=== PATIENT | female | born 1940 | race Caucasian/White ===

== ENCOUNTER → 2017-04-22 | Outpatient (CLI) | payer MEDICARE ==
[2017-04-22 15:32] LABS: ANION GAP 11 (5-19); BLOOD UREA NITROGEN 13 mg/dL (7-20); CALCIUM 10.2 mg/dL (8.4-10.2); CARBON DIOXIDE 29 mmol/L (22-30); CHLORIDE 98 mmol/L (98-107); GLUCOSE 85 mg/dL (75-110); POTASSIUM 3.6 mmol/L (3.6-5.0); SODIUM 138.1 mmol/L (137-145)
== END ==
LOC: OD 14:13
PROVIDERS: ATTEND Physician Assistant
DX: E87.6 Hypokalemia (principal)
CPT/HCPCS: 36415; 80048

== ENCOUNTER → 2018-03-13 | Outpatient (CLI) | payer MEDICARE ==
--- NOTE | 2018-03-13 10:26 | WOMENS IMAGING REPORT ---
EXAM DESCRIPTION: BONE DENSITY HIP/SPINE COMPLETED DATE/TIME: 03/13/2018 9:34 am REASON FOR STUDY: AGE-RELATED OSTEOPROSIS; M81.0 Z12.31 ENCNTR SCREEN MAMMOGRAM FOR MALIGNANT NEOPL ASM OF VIC M81.0 AGE-RELATED OSTEOPOROSIS W/O CURRENT PATHOLOGICAL FRAC COMPARISON: October 2015 TECHNIQUE: Dual-Energy X-ray Absorptiometry (DEXA) of the AP Spine and Hip. LIMITATIONS: None. FINDINGS: LUMBAR SPINE: The bone mineral density (BMD) measured from L1-L4 in the AP projection correlates with a T-score of 0.0, which is normal as defined by the World Health Organization. 2.7% increase as compared to the p revious study HIP: The bone mineral density (BMD) measured in the left hip correlates with a T-score of -2.0, which is o steoma as defined by the World Health Organization. 3.7% increase as compared to the previous study. IMPRESSION: 1. LUMBAR SPINE: Normal 2. HIP: Osteopenia COMMENT: The World Health Organization defines low BMD as follows: T-score: Normal: Greater than -1.0 Osteopenia: Between -1.0 and -2.5 Osteoporosis: Less than -2.5 without fractures Established osteoporosis: Less than -2.5 with fractures In general, you may wish to consider: Diagnosis Treatment Follow-up DEXA Normal BMD Prevention 2-3 years Osteopenia Prevention/Therapy 1-2 years Osteoporosis Therapy Yearly TECHNICAL DOCUMENTATION: JOB ID: [id number] [employer]- All Rights Reserved Reading location - IP/workstation name: [email or web address]
--- NOTE | 2018-03-13 12:53 | WOMENS IMAGING REPORT ---
EXAM DESCRIPTION: 3D SCREENING MAMMO BILAT COMPLETED DATE/TIME: 03/13/2018 9:34 am REASON FOR STUDY: ROUTINE SCREENING;Z12.31 Z12.31 ENCNTR SCREEN MAMMOGRAM FOR MALIGNANT NEOPLASM OF VIC M81.0 AGE-RELATED OSTEOPOROSIS W/O CURRENT PATHOLOGICAL FRAC COMPARISON: Multiple since 2008 TECHNIQUE: Standard craniocaudal and mediolateral oblique views of each breast recorded using digita l acquisition and breast tomosynthesis. LIMITATIONS: None. FINDINGS: No masses, calcifications or architectural distortion. No areas of suspicion. Read with the assistance of CAD. .[facility] - R2 C[employer]ova Version 1.3 .[facility] - R2 Cenova Version 1.3 .[facility] - R2 Cenova Version 2.4 .[facility] - R2 Cenova Version 2.4 .[facility] - R2 Remote Sensing Technician Version 9.2 IMPRESSION: NORMAL MAMMOGRAM. BIRADS 1. BREAST DENSITY: b. There are scattered areas of fibroglandular density. BIRAD: 1 NEGATIVE RECOMMENDATION: ROUTINE SCREENING Please continue bilateral screening tomosynthesis in March 2019 COMMENT: The patient has been notified of the results by letter per SA requirements. Additional no tification policies are in place for contacting patient with suspicious or incomplete findings. Quality ID #225: The [employer] recommends an annual screening mammogram for women aged 40 years or over. This facility utilizes a reminder system to ensure that all patients receive reminder letters, and/or direct phone calls for appointments. This includes reminders for routine scr eening mammograms, diagnostic mammograms, or other Breast Imaging Interventions when appropriate. Th is patient will be placed in the appropriate reminder system. The [employer] (ACR) has developed recommendations for screening MRI of the breast s in certain patient populations, to be used in conjunction with mammography. Breast MRI surveillanc e may be appropriate for women with more than 20% lifetime risk of developing breast cancer as deter mined by genetic testing, significant family history of the disease, or history of mantle radiation f or Hodgkins Disease. ACR Practice Guidelines 2008. DBT Technology DBT is a type of tomographic mammography. With conventional mammography, overlapping breast tissue ma y make lesions difficult to detect, even with good compression. DBT uses an x-ray tube that rotates a round the breast, taking images at different angles. These images are then combined to create thin sl ices of the breast that the radiologist can view as a 3D reconstruction. The [employer] unit can perform full-field digital mammograms (2D imaging); or DBT (3D imaging); or both, in a combination mode that quickly performs both the mammogram and the tomosynthesis scan while the breast is still compressed. PQRS 6045F: Fluoroscopic imaging is not utilized for breast tomosynthesis. TECHNICAL DOCUMENTATION: FINDING NUMBER: (1) ASSESSMENT: (1) JOB ID: [id number] [employer]- All Rights Reserved Reading location - IP/workstation name: [email or web address]-[email or web address]
== END ==
LOC: WI 09:00
PROVIDERS: ATTEND Physician Assistant
DX: Z12.31 Encounter for screening mammogram for malignant neoplasm of breast (principal); M81.0 Age-related osteoporosis without current pathological fracture
CPT/HCPCS: 77063; 77067; 77080

== ENCOUNTER 2019-01-20 06:55 | Day surgery (SDC) | payer MEDICARE ==
[2019-01-13 09:34] LABS: HEMATOCRIT 37.6 % (36.0-47.0); HEMOGLOBIN 12.7 g/dL (12.0-15.5); MEAN CORPUSCULAR HEMOGLOBIN 28.2 pg (27.0-33.4); MEAN CORPUSCULAR HGB CONC 33.8 g/dL (32.0-36.0); MEAN CORPUSCULAR VOLUME 83 fl (80-97); PLATELET COUNT 169 10^3/uL (150-450); RED BLOOD COUNT 4.51 10^6/uL (3.72-5.28); RED CELL DISTRIBUTION WIDTH 15.1 % (11.5-14.0); WHITE BLOOD COUNT 4.6 10^3/uL (4.0-10.5)
[~2019-01-20 06:55] MED LIST: LACTATED RINGERS 1000 ML IV PRN; LIDOCAINE 0.5% INJ-PF (5 MG/ML) 50 ML SDV SUBCUT PRN; METRONIDAZOLE 500 MG/NS RTU 500 MG/100 ML RTUPB IV PRN
[2019-01-20] MEDS ORDERED: LIDOCAINE 2% JELLY 5 ML TUBE ONE (07:19)
[2019-01-20] MEDS ORDERED: METRONIDAZOLE 500 MG/NS RTU 500 MG/100 ML RTUPB IV ONE (07:19)
[2019-01-20] MEDS ORDERED: LIDOCAINE 1%/EPINEPHRINE INJ 20 ML VIAL ONE (07:19)
[2019-01-20] MEDS ORDERED: FENTANYL CITRATE INJ/PF 100 MCG/2 ML AMPUL ONE (08:35)
[2019-01-20] MEDS ORDERED: MIDAZOLAM 2 MG/2 ML INJ ONE ×2 (08:35→08:37)
[2019-01-20] MEDS ORDERED: ONDANSETRON HCL INJ/PF 4 MG/2 ML SDV ONE (08:35)
[2019-01-20] MEDS ORDERED: PROPOFOL INJ 200 MG/20 ML VIAL IV ONE (08:36)
[2019-01-20] MEDS ORDERED: DIPHENHYDRAMINE HCL 50 MG/ML VIAL IV PRN (08:57)
[2019-01-20] MEDS ORDERED: MORPHINE SULFATE 10 MG/ML INJ IV PRN (08:57)
[2019-01-20] MEDS ORDERED: FENTANYL CITRATE INJ/PF 100 MCG/2 ML AMPUL IV PRN ×3 (08:57)
[2019-01-20] MEDS ORDERED: PROMETHAZINE HCL INJ 25 MG/1 ML VIAL IV PRN ×2 (08:57)
[2019-01-20] MEDS ORDERED: MEPERIDINE HCL/PF INJ 25 MG/1 ML DISP.SYRIN IV PRN (08:57)
[2019-01-20] MEDS ORDERED: OXYCODONE-ACETAMINOPHEN 5-325 MG TABLET PO PRN (09:35)
--- NOTE | 2019-01-20 09:35 | Discharge Summary ---
Discharge Summary (SDC) - Discharge Final Diagnosis: fistulotomy Date of Surgery: 01/20/19 Discharge Date: 01/20/19 Condition: Good Treatment or Instructions: [facility] [address] [place] [id number] Hemorrhoid or Anal Surgery Discharge Instructions 1. General Information: a. DO NOT DRIVE a car or operate dangerous machinery for 4-7 days or while taking prescription pain pills. b. DO NOT consume alcohol, tranquilizers, sleeping medications or any non- prescribed medications for 24 hours unless approved by your doctor or as long as taking narcotic prescription medications. c. DO NOT make important decisions or sign any important papers for the next 24 hours. d. Have a responsible person with you tonight. 2. Activity Restrictions: 2 weeks a. Avoid heavy lifting or straining until you feel more comfortable. b. It is fine to go for walks, up and down steps, ride in a car. 3. Treatment: a. Tomorrow morning begin warm water sitz baths (soaks) with plain water. You may do 3-4 times per day or after bowel movements to help relieve spasm and pain. Place a dry gauze or panty liner over the sight to catch drainage and blood to help keep your clothing dry. b. You may use Tucks or other medicated wipes to help clean the area as needed. c. If packing used it will pass spontaneously with bowel function. External dressings and medicated gauze should be removed before sitz baths. 4. Medications: a. You may take the prescription tablets for pain one tablet every 6 hours. (_Toradol_). c. Resume all normal medications unless a change is specified by your doctors. d. Stool softeners are encouraged to help you for 2-4 weeks to maintain a soft stool and avoid more painful bowel movements due to pain medication. Colace is often used. e. A numbing cream may be prescribed, this can be applied after sitz baths around the perianal area before the sight is covered with a gauze pad. f. Constipation is very common after anal surgery and you may take pysj-cpx-oingoed medications to help stimulate the bowel such as Milk of Magnesia, Senokot tablets, prune juice and drink plenty of water. 5. Diet: a. Begin with clear liquids and if you do well you may then advance to normal foods low in fat and protein at first. Smaller portion size may be will the first night. b. Acidic (orange juice, tomato), foods high in ruffage (grapes, celery, asparagus) and spicy foods should be avoided for comfort the first 2-3 weeks since they can cause more burning sensation with bowel movements. 6..Follow Up Care: a. Please call the office to schedule a follow up appointment with your doctor for 2 weeks. In the event of any postoperative problems or questions or you may call the office during business hours or the On-Call physician evenings and weekends at [facility]. [facility] I understand the instructions for my postoperative care as described above and a copy has been given to me. Patient/Significant Other Witness Date Prescriptions: Ketorolac Tromethamine [Toradol 10 mg Tablet] 10 mg PO Q6HP PRN #20 tablet PRN Reason: Referrals: ALAN ALLEN PA [Primary Care Provider] - Discharge Diet: As Tolerated Discharge Activity: No Lifting Over 10 Pounds, Walk Frequently Report the Following to Your Physician Immediately: Nausea, Vomiting, Increase in Pain, Fever over 101 Degrees, Unusual Bleeding, Redness, Swelling, Warmth, Drainage-Foul Smelling
--- NOTE | 2019-01-20 09:42 | Operative Report ---
Operative Report DATE OF SURGERY: 01/20/19 PREOPERATIVE DIAGNOSIS: Right perianal abscess, rule out fistula in ano POSTOPERATIVE DIAGNOSIS: same; superficial right lateral fistula in ano OPERATION: 1. Examination under anesthesia. 2. Right lateral anal fistulotomy SURGEON: SILVA PONCE 1ST AIRLINE RADIO OPERATOR: RADHA PHELPS ANESTHESIA: LMAC TISSUE REMOVED OR ALTERED: See below COMPLICATIONS: none ESTIMATED BLOOD LOSS: Scant INTRAOPERATIVE FINDINGS: See below PROCEDURE: The patient was taken to the preop holding area to the main operating room where LMAC anesthesia was induced. She was placed in the prone jackknife position buttocks spread taped widely. Surgical plan surgical timeout were conducted. Careful inspection of the perianal tissue revealed no obvious pathology. The anal canal was gently dilated up with 1 then to adult fingers. There were ci rcumferential, internal hemorrhoids, small and collapsed. There was no visible or palpable anal verge pathology. We then inserted first a medium-sized Hill- Spann retractor and then eventually the standard bullet anoscope and again other than a few, very mildly excoriated areas along the dentate line, there were no obvious indications of a internal fistula opening. I again re-evaluated the perianal tissue by palpation. There was no palpable cord, mass etc. However the skin just lateral to the anal verge in the patient's right lateral position was somewhat scarred. I anesthetized this area with 1% plain lidocaine, and insinuated the micro hemostat through the skin. The subcutaneous tissue opened, and I then followed with a probe, which in fact was a tract towards the anal canal, superficial to the external anal sphincter. The point of entry was right at the dentate line.. That the mucosa had healed over this likely opening. By palpation again this to be a superficial tract, so it was opened with electrocautery. Other than transecting some hemorrhoidal tissue, there was no sphincter involved. In fact there was hardly any fibrous tract remaining. Irrigated the wound, checked for any bleeding there was none. I reinspected the anal canal felt the operation was complete. Sponge and counts are correct. A Gelfoam roll was placed in the anal canal. Patient was placed in the supine position, and taken recovery in stable condition. The physician virtual office assistant, Ms. Peters, provided assistance during this case by: Assisting with retracting tissue, instillation of local anesthesia and closure of skin incisions.
[2019-01-20 11:32] VITALS: BP 144/73
== END 2019-01-20 11:35 | disposition home or self-care (01) ==
LOC: OROUT 06:55
PROVIDERS: ATTEND Surgery
DX: K61.0 Anal abscess (principal); K64.8 Other hemorrhoids; E03.9 Hypothyroidism, unspecified; I10 Essential (primary) hypertension; Z79.899 Other long term (current) drug therapy; Z01.818 Encounter for other preprocedural examination
CPT/HCPCS: 36415 ×2; 84132; 85027; 46270; J2250; J3010; J3490; J2704; 902; J2405

== ENCOUNTER → 2019-10-15 | Outpatient (CLI) | payer MEDICARE ==
--- NOTE | 2019-10-15 14:45 | WOMENS IMAGING REPORT ---
EXAM DESCRIPTION: 3D SCREENING MAMMO BILAT COMPLETED DATE/TIME: 10/15/2019 2:23 pm REASON FOR STUDY: Z12.31 ENCOUNTER FOR SCREENING MAMMOGRAM FOR MALIGNANT NEOPLASM OF BREAST Z12.31 ENCNTR SCREEN MAMMOGRAM FOR MALIGNANT NEOPLASM OF VIC COMPARISON: 03/13/2018 and 09/05/2016 EXAM PARAMETERS: Standard craniocaudal and mediolateral oblique views of each breast recorded using digital acquisition and breast tomosynthesis. Read with the assistance of CAD. .[facility] - [employer] Version 9.2 LIMITATIONS: None. FINDINGS: Findings present which are benign by mammographic criteria. No suspicious masses, calcific ations or architectural distortion. Benign mammographic findings may include one or more of the following: Smooth masses, popcorn/rim/coa rse calcifications, asymmetries, post-procedure changes, and lesions with long-standing stability. IMPRESSION: BENIGN MAMMOGRAPHIC FINDINGS. BIRADS 2 BREAST DENSITY: a. The breasts are almost entirely fatty. BIRAD: ASSESSMENT: 2 BENIGN FINDING(S) RECOMMENDATION: ROUTINE SCREENING in 1 year COMMENT: The patient has been notified of the results by letter per SA requirements. Additional no tification policies are in place for contacting patient with suspicious or incomplete findings. Quality ID #225: The [employer] recommends an annual screening mammogram for women aged 40 years or over. This facility utilizes a reminder system to ensure that all patients receive reminder letters, and/or direct phone calls for appointments. This includes reminders for routine scr eening mammograms, diagnostic mammograms, or other Breast Imaging Interventions when appropriate. Th is patient will be placed in the appropriate reminder system. TECHNICAL DOCUMENTATION: FINDING NUMBER: (1) ASSESSMENT: (1) JOB ID: [id number] [employer]- All Rights Reserved Reading location - IP/workstation name: [email or web address]
== END ==
LOC: WI 14:23
PROVIDERS: ATTEND Physician Assistant
DX: Z12.31 Encounter for screening mammogram for malignant neoplasm of breast (principal)
CPT/HCPCS: 77063; 77067

== ENCOUNTER → 2019-12-31 | Outpatient (CLI) | payer MEDICARE ==
--- NOTE | 2019-12-31 13:20 | RADIOLOGY REPORT (SQ) ---
EXAM DESCRIPTION: CHEST PA/LATERAL COMPLETED DATE/TIME: 12/31/2019 12:47 pm REASON FOR STUDY: COUGH COMPARISON: 02/05/2014 EXAM PARAMETERS: NUMBER OF VIEWS: two views TECHNIQUE: Digital Frontal and Lateral radiographic views of the chest acquired. RADIATION DOSE: NA LIMITATIONS: none FINDINGS: LUNGS AND PLEURA: No opacities, masses or pneumothorax. No pleural effusion. MEDIASTINUM AND HILAR STRUCTURES: No masses or contour abnormalities. HEART AND VASCULAR STRUCTURES: Heart size is borderline. No pulmonary edema. BONES: No acute findings. HARDWARE: None in the chest. OTHER: No other significant finding. IMPRESSION: Borderline heart size without pulmonary edema. No acute pulmonary finding. TECHNICAL DOCUMENTATION: JOB ID: [id number] [employer]- All Rights Reserved Reading location - IP/workstation name: [email or web address]
== END ==
LOC: OD 12:37
PROVIDERS: ATTEND Physician Assistant
DX: R05 Cough (principal)
CPT/HCPCS: 71046

== ENCOUNTER → 2020-10-16 | Outpatient (CLI) | payer MEDICARE ==
--- NOTE | 2020-10-16 10:56 | WOMENS IMAGING REPORT ---
EXAM DESCRIPTION: BONE DENSITY HIP/SPINE IMAGES COMPLETED DATE/TIME: 10/16/2020 8:59 am REASON FOR STUDY: M81.0 AGE-RELATED OSTEOPOROSIS W/O CURRENT PATHOLOGICAL FRACTURE Z12.31 ENCNTR SC REEN MAMMOGRAM FOR MALIGNANT NEOPLASM OF VIC M81.0 AGE-RELATED OSTEOPOROSIS W/O CURRENT PATHOLOGICAL FRAC COMPARISON: 03/13/2018 and 11/01/2015. TECHNIQUE: Dual-Energy X-ray Absorptiometry (DEXA) of the AP Spine and Hip. LIMITATIONS: None. FINDINGS: LUMBAR SPINE: The bone mineral density (BMD) measured from L1-L4 in the AP projection correlates with a T-score of -0.1, which is normal as defined by the World Health Organization. BMD Change vs Baseline: 1.8% increase. HIP: The bone mineral density (BMD) measured in the left femoral neck correlates with a T-score of -2.2, w hich is osteopenia as defined by the World Health Organization. BMD Change vs Baseline: 2.3% decrease. 10 year Fracture Risk Assessment: Major Osteoporotic Fracture: 6.6% without history of prior fracture and 9.7% with history of prior f racture. Hip Fracture: 1.8% without history of prior fracture and 2.4% with history of prior fracture. IMPRESSION: 1. LUMBAR SPINE WHO CLASSIFICATION: NORMAL. 2. HIP WHO CLASSIFICATION: OSTEOPENIA. OVERALL ASSESSMENT: WHO CLASSIFICATION: OSTEOPENIA. COMMENT: The World Health Organization defines low BMD as follows: T-score: Normal: At or above -1.0 Osteopenia: Between -1.0 and -2.5 Osteoporosis: At or below -2.5 without fractures Established osteoporosis: At or below -2.5 with fractures In general, you may wish to consider: Diagnosis Treatment Follow-up DEXA Normal BMD Prevention 2-3 years Osteopenia Prevention/Therapy 1-2 years Osteoporosis Therapy Yearly TECHNICAL DOCUMENTATION: JOB ID: [id number] 2010 [employer]- All Rights Reserved Reading location - IP/workstation name: [email or web address]
== END ==
LOC: WI 08:25
PROVIDERS: ATTEND Physician Assistant
DX: Z12.31 Encounter for screening mammogram for malignant neoplasm of breast (principal); M81.0 Age-related osteoporosis without current pathological fracture
CPT/HCPCS: 77067; 77080